=== PATIENT | female | born 1940 | race Caucasian/White ===

== ENCOUNTER → 2017-08-27 | Outpatient (CLI) | payer MEDICARE | END | disposition home or self-care (01) | LOC: RAH 11:17 | PROVIDERS: ATTEND Physical Medicine & Rehabilitation | DX: M51.16 Intervertebral disc disorders with radiculopathy, lumbar region (principal); M48.07 Spinal stenosis, lumbosacral region; M48.05 Spinal stenosis, thoracolumbar region; M47.896 Other spondylosis, lumbar region | CPT/HCPCS: 72110 ==

== ENCOUNTER → 2019-10-01 | Outpatient (CLI) | payer MEDICARE ==
[2019-10-01 09:07] LABS: INR 0.99 (0.85-1.15); PARTIAL THROMBOPLASTIN TIME 26.2 SEC (26.3-35.5); PROTHROMBIN TIME 10.4 SEC (9.6-11.6)
--- NOTE | 2019-10-01 10:50 | NUR ---
US GUIDED BIOPSY RIGHT BREAST MASS PROCEDURE PERFORMED BY DR. PEÑALOZA. PUNCTURE SITE TO THE RIGHT LATERAL BREAST AREA. PATIENT TOLERATED PROCEDURE WELL. SPECIMEN X 4 COLLECTED, SENT TO LAB. END OF PROCEDURE AT 1100. BIOPSY NEEDLE REMOVED, TISSUE MARKER PLACED TO SITE, AND DRESSING APPLIED. NO BLEEDING NOTED. DISCHARGE INSTRUCTIONS GIVEN TO PATIENT AND VERBALIZED UNDERSTANDING. DISCHARGED AMBULATORY. PT STABLE, AAO X 3. NO C/O PAIN.
== END ==
LOC: RAH 07:48
PROVIDERS: ATTEND Obstetrics & Gynecology
DX: R92.8 Other abnormal and inconclusive findings on diagnostic imaging of breast (principal); C50.911 Malignant neoplasm of unspecified site of right female breast; Z79.01 Long term (current) use of anticoagulants; N63.10 Unspecified lump in the right breast, unspecified quadrant
CPT/HCPCS: 19083; 36415; 85610; 85730; 88305; 88361; A4215 ×2; 76942

== ENCOUNTER 2025-06-03 18:32 | Emergency (ER) | payer MEDICARE ==
[~2025-06-03] VITALS: Ht 165.1 cm; Wt 65.8 kg
--- NOTE | 2025-06-03 18:52 | ERN ---
ED Note History of Present Illness Stated Complaint: LACERATION Chief Complaint: Laceration/Avulsion Time Seen by MD: 18:44 Dictation: PATIENT IS AN 84-YEAR-OLD FEMALE HERE WITH HER NEIGHBOR. SHE HAS A LACERATION TO THE FRONTAL SCALP ONSET WAS 30-40 MINUTES PRIOR TO ARRIVAL. SHE STATES SHE HAD TAKEN HER GARBAGE OUT AND THE GARBAGE CAN HAS A LID, THE LID CAME DOWN AND HIT HER IN THE TOP OF HER HEAD. THERE WAS NO LOC NO NAUSEA VOMITING, SHE IS NOT ON ANY BLOOD THINNERS. SHE STATES SHE BLED A LOT. LAST TETANUS SHOT IS UNKNOWN THERE WAS NO ACTIVE BLEEDING AT THE PRESENT TIME. PATIENT NIH OF 0 SHE IS ALERT AND ORIENTED X4 SPEECH IS CLEAR GAIT IS STEADY. Allergies: Coded Allergies: Iodine and Iodide Containing Produc (Unverified Allergy, Unknown, 09/30/19) atorvastatin (Unverified Allergy, Unknown, 09/30/19) ciprofloxacin (Unverified Allergy, Unknown, 09/30/19) codeine (Unverified Allergy, Unknown, 09/30/19) metronidazole (Unverified Allergy, Unknown, 09/30/19) tramadol (Unverified Allergy, Unknown, 09/30/19) Past Medical History Past Medical History: Cancer, High Cholesterol, Hypertension Surgical History: Hysterectomy, Other Surgical History Other: RT HIP REPLACEMET, RT BREAST LUMPECTOMY History: Not Applicable RN Note Reviewed/Agreed w/PFSH: Yes Review of System Dictation CONSTITUTIONAL: NEGATIVE EXCEPT FOR HPI HEAD/FACE: NEGATIVE EXCEPT FOR HPI FRONTAL SCALP LACERATION EENT: NEGATIVE EXCEPT FOR HPI RESPIRATORY: NEGATIVE EXCEPT FOR HPI GASTROINTESTINAL/ABDOMINAL: NEGATIVE EXCEPT FOR HPI GENITOURINARY: NEGATIVE EXCEPT FOR HPI MUSCULOSKELETAL: NEGATIVE EXCEPT FOR HPI INTEGUMENTARY: NEGATIVE EXCEPT FOR HPI NEUROLOGICAL/PSYCH: NEGATIVE EXCEPT FOR HPI HEMATOLOGIC/LYMPHATIC: NEGATIVE EXCEPT FOR HPI ALL SYSTEMS NEGATIVE, EXCEPT NOTED ABOVE. 13 POINT REVIEW OF SYSTEMS ASSESSED AND ALL NEGATIVE EXCEPT FOR ABOVE. Initial Vital Sign VS Vital Signs Date Time Temp Pulse Resp B/P (MAP) Pulse Ox O2 Delivery O2 Flow Rate FiO2 06/03/25 18:37 97.5 90 18 177/83 96 Room Air 0 06/03/25 18:58 21 Physical Exam Dictation APPROXIMATELY 6.5 CM LACERATION TO ANTERIOR SCALP FRONTAL. EYES: PERRL, PINK CONJUNCTIVAS, EYELID NO TRAUMA, ANTERIOR CHAMBER WITH ARCUS SENILIS. NO ARIAS OR RACCOON SIGN EARS: PINNAS INTACT AND NO SIGNS OF TRAUMA OR ERYTHEMA EAR CANALS CLEAR AND NO DISCHARGE TM NO ERYTHEMA NO HEMOTYMPANUM NOSE: NO DISCHARGE, NO BLEEDING. OROPHARYNX: MOUTH NORMAL, TONGUE PINK, PHARYNX CLEAR,NO ERYTHEMA, TONSILS NO EXUDATES, NO ABSCESSES NOTED, MUCOUS MEMBRANE MOIST NECK: SUPPLE, NON-TENDER, NO THYROMEGALY, NO MASSES, NO JVD, NO BRUITS BREAST:DEFERRED CHEST:NO TENDERNESS, NO CREPITUS, NO PARADOXICAL MOVEMENT, NO RETRACTIONS LUNGS:CLEAR, WELL-VENTILATED, SYMMETRIC, NO RALES, NO WHEEZING, NO RHONCHI, NO STRIDOR, GOOD BREATH SOUNDS BILATERALLY HEART: REGULAR RATE, REGULAR RHYTHM, NO MURMUR, NO GALLOPS VASCULAR: NO PERIPHERAL EDEMA, ABDOMEN: SOFT, POSITIVE BOWEL SOUNDS, NONDISTENDED, NO GUARDING, NONTENDER, NO REBOUND, NO MASSES NO HEPATOMEGALY, NO SPLENOMEGALY, NO CALLEJAS'S SIGN, NO HERNIAS. RECTAL: DEFERRED GENITAL: DEFERRED NEUROLOGICAL: NORMAL SPEECH, MOTOR FUNCTION INTACT, SENSORY FUNCTION INTACT NIH IS 0 NEIGHBORS STATES HER PERSONALITY IN BASELINE. MUSCULOSKELETAL: NECK NONTENDER, FULL RANGE OF MOTION, BACK NONTENDER, FULL RANGE OF MOTION, EXTREMITIES: NONTENDER, FULL RANGE OF MOTION SKIN: COLOR PINK, DRY, NO TURGOR, NO RASH, NO LACERATIONS, NO ABRASIONS, NO CONTUSIONS. LYMPHATIC: DEFERRED Results (Laboratory/Radiology) Labs Reviewed?: Yes ED Course ED Course Orders Procedure Category Date Status Time L.E.T. Gel 3ml Syg PHA 06/03/25 Complete (L.E.T. Gel 3ml Syg) 18:47 Neomy PHA 06/03/25 Complete Sulf/Bacitra/Polymyxin 19:00 Tetanus,Diphtheria PHA 06/03/25 Complete Tox [Adult] (Diphther 19:00 Acetaminophen 500mg PHA 06/03/25 Complete Tab (Tylenol 500mg T 19:00 L.E.T. Gel 3ml Syg PHA 06/03/25 Complete (L.E.T. Gel 3ml Syg) 19:30 Current Medications Medications (Trade) Dose Ordered Sig/Razia Route PRN Reason Start Time Stop Time Status Last Admin Dose Admin Acetaminophen (TYLenol 500MG TAB) 1,000 mg ONCE ONCE PO 06/03/25 19:00 06/03/25 19:01 DC Lidocaine/ Epinephrine (L.e.t. Gel 3ml Syg) 3 ml ONCE ONCE TP 06/03/25 19:30 06/03/25 19:31 DC Lidocaine/ Epinephrine (L.e.t. Gel 3ml Syg) 3 ml STK-MED ONCE TP 06/03/25 18:47 06/03/25 18:47 DC 06/03/25 19:11 Neomycin/ Polymyxin/ Bacitracin (Triple Antibiotic Ointment) 1 appl ONCE ONCE TP 06/03/25 19:00 06/03/25 19:01 DC 06/03/25 19:08 Tetanus/ Diphtheria Toxoids Adsorbed (DiphthERIA-teTANUS TOXOID [ADULT]/ DECAVAC) 0.5 ml ONCE ONCE IM 06/03/25 19:00 06/03/25 19:01 DC 06/03/25 19:10 Vital Signs Date Time Temp Pulse Resp B/P (MAP) Pulse Ox O2 Delivery O2 Flow Rate FiO2 06/03/25 18:58 98.1 85 16 175/80 98 Room Air* 0 21 06/03/25 18:37 97.5 90 18 177/83 96 Room Air 0 1954/PATIENT IS A ALERT AND ORIENTED X4 SPEECH IS CLEAR SHE REFUSED P.R.N. ANALG ESIA FOR PAIN. LACERATION TO FRONTAL SCALP WAS STAPLED WITH A 11 FELICIA PATIENT TOLERATED WELL WOUND CARE INSTRUCTIONS TO PATIENT Medical Decision Making MDM MEDICAL DISCHARGE MAKING BASED ON HPI AND PHYSICAL EXAMINATION. NO CT OF THE HEAD INDICATED TETANUS SHOT WAS UPDATED FRONTAL LACERATION WAS CLOSED WITH A 11 FELICIA PATIENT TOLERATED WELL WOUND CARE INSTRUCTIONS GIVEN Procedure Procedure Dictation: 1944/PROCEDURE EXPLAINED TO PATIENT SHE AGREED TO PROCEED LET APPLIED TO 6.5 CM FRONTAL LACERATION AND ALLOWED TO SIT FOR 30 MINUTES. WOUND CLEANED WITH WOUND CLEANSER WOUND APPROXIMATED EASILY WITH 11 FELICIA. NO ACTIVE BLEEDING AT THIS TIME. PATIENT TOLERATED WELL SHE REFUSED P.R.N. ANALGESIA DX & DISP Disposition: Discharge Departure Impression: Primary Impression: Scalp laceration Additional Impression: Minor head trauma Condition: Stable Additional Instructions: FOLLOW-UP WITH PRIMARY CARE PROVIDER IN 1 TO 2 DAYS. TAKE MEDICATIONS DIRECTED HERE IN THE EMERGENCY ROOM. OKAY TO CONTINUE HOME MEDICATIONS UNLESS OTHERWISE DISCUSSED DURING YOUR VISIT IN THE EMERGENCY ROOM TODAY. RETURN TO YOUR NEAREST EMERGENCY ROOM IF SYMPTOMS WORSEN OR IF THERE IS NO IMPROVEMENT. CALL 911 IF YOU NEED IMMEDIATE ASSISTANCE. TAKE TYLENOL OR MOTRIN [id number] NEEDED AND IF NO CONTRAINDICATIONS ARE PRESENT. INCREASE ORAL HYDRATION. A WOUND CULTURE OR URINE CULTURE WAS ORDERED HERE IN THE EMERGENCY ROOM DEPARTMENT PLEASE FOLLOW-UP WITH PRIMARY CARE PROVIDER AND ADVISE THEM TO GET REPEAT PORTS FROM OUR FACILITY. IF YOU HAD ANY LEO WRAP/SPLINTS THAT WERE APPLIED HERE, PLEASE DO NOT REMOVE THEM UNTIL YOU SEE YOUR PRIMARY CARE OR SPECIALTY. OKAY TO WASH YOUR HAIR WITH SOAP AND WATER AND PAT DRY. APPLY TRIPLE ANTIBIOTIC OINTMENT 3 TIMES A DAY FOR FIVE DAYS TO FELICIA. FELICIA OUT IN 10 DAYS. TYLENOL [id number] NEEDED FOR PAIN. RETURN TO THE EMERGENCY ROOM IF ANY CHANGES FROM HEAD INJURY WORK SHEET. Referrals: SELF,REFERRAL (PCP) Time of Disposition: 19:54 I have reviewed the case, and I agree with, Diagnosis and Plan KELSIE BARNETTP Jun 03, 2025 18:52
[2025-06-03] MEDS: NEOMY SULF/BACITRA/POLYMYXIN B 1 EACH PACKET TP ONE (19:08)
[2025-06-03] MEDS: L.E.T. GEL 3ML SYG TP ONE ×2 (19:11→19:12)
[2025-06-03 20:10] VITALS: BP 133/76; PULSE 90; RESP 19; TEMP 98.6; O2SAT 99
== END 2025-06-03 20:11 | disposition home or self-care (01) ==
LOC: EDH 18:32
DX: S01.01XA Laceration without foreign body of scalp, initial encounter (principal); I10 Essential (primary) hypertension; E78.00 Pure hypercholesterolemia, unspecified; Z91.041 Radiographic dye allergy status; Z88.8 Allergy status to other drugs, medicaments and biological substances; Z88.1 Allergy status to other antibiotic agents; Z88.5 Allergy status to narcotic agent; Z90.710 Acquired absence of both cervix and uterus; Z96.641 Presence of right artificial hip joint; W22.8XXA Striking against or struck by other objects, initial encounter; Y93.89 Activity, other specified; Y92.89 Other specified places as the place of occurrence of the external cause; Y99.8 Other external cause status
CPT/HCPCS: 12002; 90471; 90714; 99283

== ENCOUNTER 2025-06-13 08:40 | Emergency (ER) | payer MEDICARE ==
[~2025-06-13] VITALS: Ht 162.6 cm; Wt 64.4 kg
[2025-06-13 08:49] VITALS: BP 132/73; PULSE 67; RESP 20; TEMP 98; O2SAT 98
--- NOTE | 2025-06-13 08:49 | NUR ---
PT CAME IN TO GET FELICIA REMOVED
--- NOTE | 2025-06-13 09:04 | ERN ---
General Chief Complaint: Suture/Staple Removal Stated Complaint: STAPLE REMOVAL Time Seen by MD: 08:47 Source: patient History of Present Illness Initial Comments Patient is a an 84-year-old female coming in to have sutures/cindy removed from her scalp. Per patient she had scalp laceration repair 10 days ago she does has a [address] Patient states that she has not had any drainage or discomfort in the repair. Allergies: Coded Allergies: Iodine and Iodide Containing Produc (Unverified Allergy, Unknown, 09/30/19) atorvastatin (Unverified Allergy, Unknown, 09/30/19) ciprofloxacin (Unverified Allergy, Unknown, 09/30/19) codeine (Unverified Allergy, Unknown, 09/30/19) metronidazole (Unverified Allergy, Unknown, 09/30/19) tramadol (Unverified Allergy, Unknown, 09/30/19) Past Medical History Past Medical History: Cancer, High Cholesterol, Hypertension Past Surgical History: Hysterectomy, Other Surgical History Other: RT HIP REPLACEMET, RT BREAST LUMPECTOMY Female( History) History: Not Applicable ROS Dictation CONSTITUTIONAL: No chills, no fever, no weakness, no diaphoresis, no malaise. HEAD/FACE: No signs of trauma. EENT: No eye pain, no blurred vision, no tearing, no double vision, no ear pain, no ear discharge, no nose pain, no nasal congestion, no throat pain, no throat swelling, no mouth pain. RESPIRATORY: No cough, no orthopnea, no SOB, no stridor, no wheezing. CARDIOVASCULAR: No chest pain, no edema, no palpitations, no syncope. GASTROINTESTINAL/ABDOMINAL: No abdominal pain, no constipation, no diarrhea, no nausea, no vomiting. GENITOURINARY: No abnormal discharge, no dysuria, no frequent urination, no hematuria. No complaints of pain in the genitals. MUSCULOSKELETAL: No back pain, no gout, no joint pain, no joint swelling, no muscle pain, no muscle stiffness, no neck pain. INTEGUMENTARY: No change in color, no change in hair/nails, no dryness, no lesion, no lumps, no rash. NEUROLOGICAL/PSYCH: No anxiety, not depressed, no emotional problem, no headache, no numbness, no pre-existing deficit, no history of seizures, no jarad mors, no weakness. HEMATOLOGIC/LYMPHATIC: Not anemic, no history of blood clots, no apparent bleeding, no bruising, glands not swollen. All Systems Negative, Except as Noted. Physical Exam Physical Exam Dictation VITAL SIGNS: Reviewed. GENERAL APPEARANCE: Alert, oriented x3, no acute distress, obese. HEAD AND FACE: Non-traumatic. EYES: PERRL, pink conjunctivas, eyelid no trauma, anterior chamber clear. EARS: Pinnas intact and no signs of trauma or erythema. Ear canals clear and no discharge. TMs no erythema. NOSE: No discharge, no bleeding. OROPHARYNX: Mouth normal, teeth no caries, tongue pink. Pharynx clear, no erythema. Tonsils no exudates, no abscesses noted. Mucous membrane moist. NECK: Supple, non-tender, no thyromegaly, no masses, no JVD, no bruits. BREAST: Deferred. CHEST: No tenderness, no crepitus, no paradoxical movement, no retractions. LUNGS: Clear, well-ventilated, symmetric, no rales, no wheezing, no rhonchi, no stridor, good breath sounds bilaterally. HEART: Regular rate, regular rhythm, no murmur, no gallops. VASCULAR: No peripheral edema. ABDOMEN: Soft, positive bowel sounds, nondistended, no guarding, nontender, no rebound, no masses no hepatomegaly, no splenomegaly, no Wood's sign, no hernias. RECTAL: Deferred. GENITAL: Deferred. NEUROLOGICAL: Normal speech, gross motor function intact, gross sensory function intact. MUSCULOSKELETAL: Neck nontender, full range of motion, back nontender, full range of motion. EXTREMITIES: Nontender, full range of motion. SKIN: Color pink, dry, no turgor, no rash, has been cindy across parietal frontal scalp area, healing well mild scab formation no drainage LYMPHATICS: Deferred. Results Laboratory and Microbiology Labs Reviewed?: Yes MDM MDM: Differential diagnosis: Wound evaluation, cindy in place, Rationale: Tests considered and ordered secondary to shared decision making include: Previous outside records reviewed: Old ER visits. Risk of complication and/or morbidity or mortality of patient management: None Medications-Per medication reconciliation Need for hospitalization: Patient does not meet criteria for hospitalization. Need for emergency major/minor surgery: No There are no social concerns with this patient. Patient is a an 84-year-old female coming in to have cindy removed from her s calp. Patient states that cindy were placed 10 days ago. On evaluation cindy are well placed healing well, cindy were removed intact 11 cindy removed. Patient stated that she had one staple fall off at home. Patient will be discharged in stable condition. ED Course Vital Signs Date Time Temp Pulse Resp B/P (MAP) Pulse Ox O2 Delivery O2 Flow Rate FiO2 06/13/25 08:45 98.1 67 20 132/73 98 Room Air Procedure Dictation Eleven cindy removed from the scalp region without complications. DX & DISP Disposition: Discharge Departure Impression: Primary Impression: Removal of staple Condition: Stable Additional Instructions: FOLLOW-UP WITH PRIMARY CARE PROVIDER IN 1 TO 2 DAYS. TAKE MEDICATIONS DIRECTED HERE IN THE EMERGENCY ROOM. OKAY TO CONTINUE HOME MEDICATIONS UNLESS OTHERWISE DISCUSSED DURING YOUR VISIT IN THE EMERGENCY ROOM TODAY. RETURN TO YOUR NEAREST EMERGENCY ROOM IF SYMPTOMS WORSEN OR IF THERE IS NO IMPROVEMENT. CALL 911 IF YOU NEED IMMEDIATE ASSISTANCE. TAKE TYLENOL EDAY-CZN-[id number] NEEDED AND IF NO CONTRAINDICATIONS ARE PRESENT. INCREASE ORAL HYDRATION. A WOUND CULTURE OR URINE CULTURE WAS ORDERED HERE IN THE EMERGENCY ROOM DEPARTMENT PLEASE FOLLOW-UP WITH PRIMARY CARE PROVIDER AND ADVISE THEM TO GET REPORTS FROM OUR FACILITY. IF YOU HAD ANY LEO WRAP/SPLINTS THAT WERE APPLIED HERE, PLEASE DO NOT REMOVE THEM UNTIL YOU SEE YOUR PRIMARY CARE OR SPECIALTY. Referrals: Referrals: DAVID BEAVER MD (PCP) Time of Disposition: 09:04 CRISTHIAN CAMACHO MD Jun 13, 2025 09:04
--- NOTE | 2025-06-13 09:10 | NUR ---
PROVIDED WOUND CLEANING TO HEAD AREA AT THIS TIME
== END 2025-06-13 09:25 | disposition home or self-care (01) ==
LOC: EDH 08:40
DX: S01.01XD Laceration without foreign body of scalp, subsequent encounter (principal); I10 Essential (primary) hypertension; E78.00 Pure hypercholesterolemia, unspecified; Z88.1 Allergy status to other antibiotic agents; Z88.8 Allergy status to other drugs, medicaments and biological substances; Z90.710 Acquired absence of both cervix and uterus; Z88.5 Allergy status to narcotic agent; Z98.890 Other specified postprocedural states; Z79.899 Other long term (current) drug therapy; Z91.041 Radiographic dye allergy status; X58.XXXD Exposure to other specified factors, subsequent encounter
CPT/HCPCS: 99282